=== PATIENT | female | born 2000 | race Caucasian/White ===

== ENCOUNTER 2022-10-08 05:51 | Emergency (ER) | payer SELFPAY ==
[2022-10-08 06:04] VITALS: BMI 20.1
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
== END 2022-10-08 06:44 | disposition left against medical advice (07) ==
PROVIDERS: Emergency Provider Emergency Medicine
DX: Z04.1 Encounter for examination and observation following transport accident (principal); F10.129 Alcohol abuse with intoxication, unspecified; Y90.9 Presence of alcohol in blood, level not specified; V89.2XXA Person injured in unspecified motor-vehicle accident, traffic, initial encounter; Z53.21 Procedure and treatment not carried out due to patient leaving prior to being seen by health care provider